=== PATIENT | female | born 1950 | race Caucasian/White ===

== ENCOUNTER 2020-11-18 12:13 | Emergency (ER) | payer OTHER, MEDICARE ==
[2020-11-18 13:52] LABS: Urine RBC LOADED /HPF (NONE SEEN)
[2020-11-18 13:53] LABS: Urine Bacteria 20-50 /HPF (<20)
--- NOTE | 2020-11-18 14:13 | RAD REPORT ---
EXAM DESCRIPTION: RAD - Chest Single View - 11/18/2020 1:59 pm CLINICAL HISTORY: Cough;COPD;Dyspnea Chest pain. COMPARISON: No comparisons FINDINGS: Portable technique limits examination quality. The lungs are grossly clear. The heart is normal in size. No displaced fractures. IMPRESSION: No acute intrathoracic process suspected.
[2020-11-18] MEDS ORDERED: NA CHLORIDE 0.9% 1,000 ML ONE (14:22)
[2020-11-18 14:34] LABS: Absolute Lymphocytes (CBC) 1.8 K/uL (0.7-4.9); Basophils % 1.1 % (0-1.3); Hematocrit 18.9 % (36.0-45.0); Lymphocytes % 27.9 % (15.3-44.8); MPV 8.7 fL (7.6-11.3); RBC Red Blood Cell Count 3.38 M/uL (3.86-4.86)
[2020-11-18 14:55] LABS: ALT/SGPT 14 U/L (12-78); AST/SGOT 13 U/L (15-37); Alkaline Phosphatase 93 U/L (45-117); BUN Blood Urea Nitrogen 15 mg/dL (7-18); Bicarbonate 25 mmol/L (21-32); Bilirubin Direct 0.1 mg/dL (0-0.2); Bilirubin Total 0.3 mg/dL (0.2-1.0); Glucose Level 99 mg/dL (74-106); Lipase 88 U/L (73-393); Magnesium 2.3 mg/dL (1.8-2.4); NT PRO-BNP 326 pg/mL (<125); Potassium 3.9 mmol/L (3.5-5.1); Protein, Total 6.8 g/dL (6.4-8.2); Sodium Level 143 mmol/L (136-145); Troponin (Emerg Dept Use Only) < 0.02 ng/mL (0.0-0.045)
--- NOTE | 2020-11-18 15:09 | RAD REPORT ---
EXAM DESCRIPTION: CT - Angio Aorta For Dissection - 11/18/2020 2:35 pm CLINICAL HISTORY: Chest pain radiating to the back. COPD;Dissection;Abdominal distention COMPARISON: No comparisons TECHNIQUE: CT angiography of the aorta was performed with MIPs. All CT scans are performed using dose optimization technique as appropriate and may include automated exposure control or mA/KV adjustment according to patient size. FINDINGS: A left aortic arch is present with normal branching pattern of the great vessels.No acute aortic finding is seen such as aneurysm, penetrating ulcer or dissection. The celiac axis, SMA, TIMBO and renal arteries are patent. Moderate aortoiliac atherosclerosis. No evidence of pulmonary embolism. Mild diffuse COPD is present. No pulmonary nodule, mass or infiltrate. The liver demonstrates no focal mass or biliary dilatation.Benign hepatic cysts are seen.The spleen, pancreas, adrenal glands and left kidney are within normal limits for arterial phase imaging. The right pelvicaliceal system appears dilated with the right renal pelvis measuring up to 25 mm. The right pelvicaliceal system is filled with soft tissue density material suspicious for uroepithelial neoplasm such as transitional cell carcinoma. No bowel obstruction, free fluid or abscess.Prominent sigmoid diverticulosis without diverticulitis. Appendectomy.No pathologic enlarged lymphadenopathy identified. No fracture or worrisome bone lesion seen. IMPRESSION: Right pelvicaliceal system is dilated and filled with soft tissue material very suspicio us for transitional cell carcinoma. Recommend retrograde pyelography for further assessment. No acute aortic finding is demonstrated.
[2020-11-18] MEDS ORDERED: NA CHLORIDE 0.9% 100 ML ONE (15:25)
[2020-11-18] MEDS ORDERED: CEFTRIAXONE/SWI 1gm 1 GM/10 ML SYR ONE (15:25)
[2020-11-18] MEDS ORDERED: LEVALBUTEROL 1.25 MG/3 ML NEB ONE (15:25)
[2020-11-18] MEDS ORDERED: IPRATROPIUM BROM 0.5MG/2.5ML ONE (15:25)
[2020-11-18] MEDS ORDERED: METHYLPREDNISOLONE 125 MG INJ ONE (15:25)
--- NOTE | 2020-11-18 15:28 | EDPHYS ---
Physician Documentation [facility] Name: Alycia Ames Age: 70 yrs Sex: Female : 1950 Arrival Date: 11/18/2020 Time: 12:16 Bed 5 Private MD: ED Physician Jose Bangura HPI: 11/18 13:45 This 70 yrs old Female presents to ER via Ambulatory with complaints of mary ann Shortness Of Breath, Back Pain, Urinary Problem - Blood. 13:45 The patient has shortness of breath at rest, with light activity. Onset: The mary ann symptoms/episode began/occurred gradually, 3 day(s) ago. Duration: The symptoms are continuous, and are steadily getting worse. The patient's shortness of breath has no apparent modifying factors. Associated signs and symptoms: The patient has no apparent associated signs or symptoms. Severity of symptoms: At their worst the symptoms were mild moderate in the emergency department the symptoms are unchanged. The patient has not experienced similar symptoms in the past. Historical: - Allergies: 12:58 No Known Allergies; ca1 - Home Meds: 12:58 Premarin 1.25 mg Oral tab 1 tab once daily [Active]; Lipitor 20 mg Oral tab 1 tab once ca1 daily [Active]; Zetia 10 mg Oral tab 1 tab once daily [Active]; Plavix 75 mg Oral tab 1 tab once daily [Active]; Xanax 0.5 mg Oral tab [Active]; - PMHx: 12:58 Aneurysm; High Cholesterol; ca1 - PSHx: 12:58 Hysterectomy; Appendectomy; Cholecystectomy; ca1 - Immunization history:: Pneumococcal vaccine is not up to date, Flu vaccine is not up to date. - Social history:: Smoking status: Patient reports the use of cigarette tobacco products, smokes two packs cigarettes per day. ROS: 13:46 Constitutional: Negative for fever, chills, and weight loss, Eyes: Negative for injury, mary ann pain, redness, and discharge, ENT: Negative for injury, pain, and discharge, Neck: Negative for injury, pain, and swelling, Cardiovascular: Negative for chest pain, palpitations, and edema, Back: Negative for injury and pain, : Negative for injury, bleeding, discharge, and swelling, MS/Extremity: Negative for injury and deformity, Skin: Negative for injury, rash, and discoloration, Neuro: Negative for headache, weakness, numbness, tingling, and seizure, Psych: Negative for depression, anxiety, suicide ideation, homicidal ideation, and hallucinations, Allergy/Immunology: Negative for hives, rash, and allergies, Endocrine: Negative for neck swelling, polydipsia, polyuria, polyphagia, and marked weight changes, Hematologic/Lymphatic: Negative for swollen nodes, abnormal bleeding, and unusual bruising. 13:46 Respiratory: Positive for cough, shortness of breath, at rest. 13:46 Abdomen/GI: Positive for abdominal pain, of the right lower quadrant. Exam: 13:46 Constitutional: This is a well developed, well nourished patient who is awake, alert, mary ann and in no acute distress. Head/Face: Normocephalic, atraumatic. Eyes: Pupils equal round and reactive to light, extra-ocular motions intact. Lids and lashes normal. Conjunctiva and sclera are non-icteric and not injected. Cornea within normal limits. Periorbital areas with no swelling, redness, or edema. ENT: Nares patent. No nasal discharge, no septal abnormalities noted. Tympanic membranes are normal and external auditory canals are clear. Oropharynx with no redness, swelling, or masses, exudates, or evidence of obstruction, uvula midline. Mucous membranes moist. Neck: Trachea midline, no thyromegaly or masses palpated, and no cervical lymphadenopathy. Supple, full range of motion without nuchal rigidity, or vertebral point tenderness. No Meningismus. Chest/axilla: Normal chest wall appearance and motion. Nontender with no deformity. No lesions are appreciated. Cardiovascular: Regular rate and rhythm with a normal S1 and S2. No gallops, murmurs, or rubs. Normal PMI, no JVD. No pulse deficits. Back: No spinal tenderness. No costovertebral tenderness. Full range of motion. Female : Normal external genitalia. Skin: Warm, dry with normal turgor. Normal color with no rashes, no lesions, and no evidence of cellulitis. MS/ Extremity: Pulses equal, no cyanosis. Neurovascular intact. Full, normal range of motion. Neuro: Awake and alert, GCS 15, oriented to person, place, time, and situation. Cranial nerves II-XII grossly intact. Motor strength 5/5 in all extremities. Sensory grossly intact. Cerebellar exam normal. Normal gait. Psych: Awake, alert, with orientation to person, place and time. Behavior, mood, and affect are within normal limits. 13:46 Respiratory: the patient does not display signs of respiratory distress, Respirations: no acute changes, Breath sounds: decreased breath sounds, that are moderate, are heard in the right upper lobe, left upper lobe, right middle lobe, left lower lobe, right lower lobe, left posterior upper lobe, right posterior upper lobe, left posterior lower lobe, right posterior middle lobe and right posterior lower lobe. 13:46 Abdomen/GI: Inspection: abdomen appears normal, Bowel sounds: normal, Palpation: mild abdominal tenderness, in the right lower quadrant. 15:28 Abdomen/GI: Rectal exam: is unremarkable, rectal tone Stool: guaiac negative, mary ann hemorrhoid(s), are not appreciated, mass, is not appreciated, swelling, is not appreciated, tenderness, is not appreciated, fecal impaction, is not appreciated, the exam is chaperoned by a family member. Vital Signs: 12:50 BP 144 / 66; Pulse 82; Resp 19 S; Temp 97.3(TE); Pulse Ox 100% on R/A; Weight 80.29 kg ca1 (R); Height 5 ft. 7 in. (170.18 cm) (R); Pain 0/10; 14:00 BP 127 / 61; Pulse 80; Resp 17; Pulse Ox 100% ; bp 15:00 BP 131 / 64; Pulse 86; Resp 17; Pulse Ox 100% ; bp 16:00 BP 132 / 59; Pulse 89; Resp 17; Pulse Ox 99% ; bp 18:00 BP 124 / 65; Pulse 88; Resp 19; Temp 98.5; Pulse Ox 100% ; bp 12:50 Body Mass Index 27.72 (80.29 kg, 170.18 cm) ca1 MDM: 13:27 Patient medically screened. mary ann 13:48 Differential diagnosis: CHF exacerbation, Chronic Obstructive Pulmonary Disease mary ann Myocardial Infarction pulmonary edema, Pulmonary Embolism Sepsis Unstable Angina Peptic Ulcer Disease, urinary tract infection. Antibiotic administration: Not indicated. The patient's Wells Deep Vein Thrombosis Score was calculated as follows: Total Score: 0-2 Pts- Low Risk. The patient's pulmonary embolism risk score was calculated as follows: Total Score: 0-2 points. This patient was found to be at low risk for a pulmonary embolism by using the Well's assessment criteria. Immunization status: Pneumococcal vaccine: Influenza vaccine: Data reviewed: vital signs, nurses notes, old medical records, lab test result(s), EKG, radiologic studies, CT scan, plain films. 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 Test interpretation: by ED physician or midlevel provider: ECG, plain radiologic studies. Counseling: I had a detailed discussion with the patient and/or guardian regarding: the historical points, exam findings, and any diagnostic results supporting the discharge/admit diagnosis, lab results, radiology results, the need for further work-up and treatment in the hospital. 11/18 13:25 Order name: Urine Culture [facility] 11/18 13:25 Order name: Urine Microscopic Only [facility] 11/18 13:43 Order name: Basic Metabolic Panel; Complete Time: 15:15 [facility] 11/18 13:43 Order name: CBC with Diff [facility] 11/18 13:43 Order name: LFT's; Complete Time: 15:15 [facility] 11/18 13:43 Order name: Magnesium; Complete Time: 15:15 [facility] 11/18 13:43 Order name: NT PRO-BNP; Complete Time: 15:15 [facility] 11/18 13:43 Order name: PT-INR; Complete Time: 14:55 [facility] 11/18 13:43 Order name: Troponin (emerg Dept Use Only); Complete Time: 15:15 [facility] 11/18 13:43 Order name: Blood Culture Adult (2) [facility] 11/18 13:43 Order name: Lipase; Complete Time: 15:15 [facility] 11/18 13:43 Order name: Flu [facility] 11/18 13:43 Order name: Lactate; Complete Time: 14:55 [facility] 11/18 13:43 Order name: XRAY Chest (1 view); Complete Time: 14:33 [facility] 11/18 13:43 Order name: CT Aorta for Dissection; Complete Time: 15:15 [facility] 11/18 13:55 Order name: Urine Microscopic Only; Complete Time: 14:33 [facility] 11/18 14:34 Order name: CREATININE WHOLE BLOOD [facility] 11/18 15:17 Order name: Type And Screen [facility] 11/18 15:28 Order name: SARS-COV-2 RT PCR; Complete Time: 15:32 [facility] 11/18 15:37 Order name: CBC Smear Scan [facility] 11/18 17:01 Order name: ABO/RH no charge [facility] 11/18 13:43 Order name: O2 Sat Monitoring; Complete Time: 13:47 [facility] 11/18 13:43 Order name: Urine Dipstick-Ancillary (obtain specimen); Complete Time: 14:34 [facility] Administered Medications: 14:20 Drug: NS 0.9% 1000 ml Route: IV; Rate: 125 ml/hr; Site: right antecubital; bp 14:45 Drug: SOLU-Medrol 125 mg Route: IVP; Site: right antecubital; bp 16:08 Follow up: Response: No adverse reaction bp 14:45 Drug: Xopenex 3.75 mg Route: Inhalation; bp 14:45 Drug: AtroVENT Aerosol 0.5 mg Route: Inhalation; bp 14:45 Drug: Rocephin 1 grams Route: IV; Rate: per protocol; Site: right antecubital; bp 16:08 Follow up: IV Status: Completed infusion; IV Intake: 50ml bp 15:45 Drug: Pepcid 20 mg Route: IVP; Site: right antecubital; bp 16:09 Follow up: Response: No adverse reaction bp 20:23 Drug: Nicotine 21 mg/24 hr 1 patches {Note: applied to the left shoulder.} Route: em Transdermal; Site: affected area; Disposition: 11/18/20 15:27 Transfer ordered to [facility]. Diagnosis are Chronic obstructive pulmonary disease, unspecified, Anemia, unspecified, Hematuria - rightpelvicaliceal dilation mass, transitional cell cancer. - Reason for transfer: Higher level of care. - Accepting physician is to [facility]. - Condition is Fair. - Problem is new. - Symptoms have improved. Signatures: Dispatcher [employer] EDHI Jose Bangura MD MD cha Munoz, Edgar, RN RN Mateo Merchant RN RN Erika Duran RN RN ca1 Corrections: (The following items were deleted from the chart) 15:35 13:45 CORONAVIRUS+MR.LAB.BRZ ordered. [facility] 16:20 15:27 11/18/2020 15:27 Transfer ordered to [facility]. [facility] Diagnosis is Chronic obstructive pulmonary disease, unspecified; Anemia, unspecified; Hematuria - rightpelvicaliceal dilation mass, transitional cell cancer. Reason for transfer: Higher level of care. Accepting physician is to [facility]. Condition is Fair. Problem is new. Symptoms have improved. [facility] 21:23 16:20 11/18/2020 15:27 Transfer ordered to [facility]. em Diagnosis is Chronic obstructive pulmonary disease, unspecified; Anemia, unspecified; Hematuria - rightpelvicaliceal dilation mass, transitional cell cancer. Reason for transfer: Higher level of care. Accepting physician is to [facility]. Condition is Fair. Problem is new. Symptoms have improved. mary ann
--- NOTE | 2020-11-18 15:28 | ER ---
Nurse's Notes [facility] Name: Alycia Ames Age: 70 yrs Sex: Female : 1950 Arrival Date: 11/18/2020 Time: 12:16 Bed 5 Private MD: Diagnosis: Chronic obstructive pulmonary disease, unspecified;Anemia, unspecified;Hematuria-rightpelvicaliceal dilation mass, transitional cell cancer Presentation: 11/18 12:50 Chief complaint: Patient's son or daughter states: Daughter: Blood in Urine on and off ca1 x 2 months. R lower back pain on and off x 2 months. Pain with bloody urine. SOB x 2 - 3 weeks, getting worse. Denies fever. Denies cough. Reports swelling on R ankle, L eye, and some abdominal distention. Coronavirus screen: Client denies travel out of the [place] in the last 14 days. shortness of breath, Client presents with at least one sign or symptom that may indicate coronavirus-19. Standard/surgical mask placed on the client. Provider contacted for isolation considerations. Ebola Screen: Patient negative for fever greater than or equal to 101.5 degrees Fahrenheit, and additional compatible Ebola Virus Disease symptoms Patient denies exposure to infectious person. Patient denies travel to an Ebola-affected area in the 21 days before illness onset. No symptoms or risks identified at this time. Initial Sepsis Screen: Does the patient meet any 2 criteria? No. Patient's initial sepsis screen is negative. Does the patient have a suspected source of infection? No. Patient's initial sepsis screen is negative. Risk Assessment: Do you want to hurt yourself or someone else? Patient reports no desire to harm self or others. Onset of symptoms was November 18, 2020. 12:50 Method Of Arrival: Ambulatory ca1 12:50 Acuity: SANDRITA 3 ca1 Triage Assessment: 13:00 General: Appears in no apparent distress. uncomfortable, Behavior is cooperative, bp appropriate for age, anxious. Pain: Complains of pain in back. EENT: No deficits noted. Neuro: No deficits noted. Cardiovascular: No deficits noted. Respiratory: Reports shortness of breath Onset: The symptoms/episode began/occurred at an unknown time. the patient has mild shortness of breath. GI: Reports diarrhea. : Reports BLOOD IN URINE. Derm: No deficits noted. Musculoskeletal: No deficits noted. Historical: - Allergies: 12:58 No Known Allergies; ca1 - Home Meds: 12:58 Premarin 1.25 mg Oral tab 1 tab once daily [Active]; Lipitor 20 mg Oral tab 1 tab once ca1 daily [Active]; Zetia 10 mg Oral tab 1 tab once daily [Active]; Plavix 75 mg Oral tab 1 tab once daily [Active]; Xanax 0.5 mg Oral tab [Active]; - PMHx: 12:58 Aneurysm; High Cholesterol; ca1 - PSHx: 12:58 Hysterectomy; Appendectomy; Cholecystectomy; ca1 - Immunization history:: Pneumococcal vaccine is not up to date, Flu vaccine is not up to date. - Social history:: Smoking status: Patient reports the use of cigarette tobacco products, smokes two packs cigarettes per day. Screenin:50 Abuse screen: Denies threats or abuse. Has been threatened or abused. Nutritional bp screening: No deficits noted. Tuberculosis screening: No symptoms or risk factors identified. 12:50 The patient has not been NPO before screening. The patient is alert, able to follow bp commands. The patient does not exhibit slurred or garbled speech The patient is not exhibiting difficulty speaking. The patient does not exhibit difficulty understanding words. The patient is able to swallow own secretions with no drooling or need for suction. Patient tolerated one teaspoon of water. No drooling, immediate coughing, gurgling, or clearing of the throat was noted. The patient tolerated 90mL of water. No drooling, immediate coughing, gurgling, or clearing of the throat was noted. The patient passed the bedside swallow screening. Oral medications may be given as ordered. Contact Physician for further diet orders. Fall Risk None identified. Assessment: 13:30 General: SEE TRIAGE NOTE. bp 14:30 Cardiovascular: No deficits noted. Respiratory: Airway is patent Respiratory effort is bp even, unlabored. 15:30 Reassessment: No changes from previously documented assessment. Patient and/or family bp updated on plan of care and expected duration. Pain level reassessed. Patient is alert, oriented x 3, equal unlabored respirations, skin warm/dry/pink. TRANSFER INITIATED. 16:30 Reassessment: TRANSFER IN PROCESS. TRANSFUSION CONSENT SIGNED AND WITNESSED. bp Cardiovascular: Rhythm is sinus rhythm. Respiratory: Breath sounds are diminished bilaterally. 18:20 Reassessment: No changes from previously documented assessment. Patient and/or family bp updated on plan of care and expected duration. Pain level reassessed. Patient is alert, oriented x 3, equal unlabored respirations, skin warm/dry/pink. 1ST UNIT PRBC INITIATED. 19:55 Reassessment: report given to [facility]. Reassessment: report given to SAMINA Tipton at [facility], pending EMS transportation. 20:40 Reassessment: Patient appears in no apparent distress at this time. Patient and/or iw family updated on plan of care and expected duration. Pain level reassessed. Patient is alert, oriented x 3, equal unlabored respirations, skin warm/dry/pink. RBC's completed. Vital Signs: 12:50 BP 144 / 66; Pulse 82; Resp 19 S; Temp 97.3(TE); Pulse Ox 100% on R/A; Weight 80.29 kg ca1 (R); Height 5 ft. 7 in. (170.18 cm) (R); Pain 0/10; 14:00 BP 127 / 61; Pulse 80; Resp 17; Pulse Ox 100% ; bp 15:00 BP 131 / 64; Pulse 86; Resp 17; Pulse Ox 100% ; bp 16:00 BP 132 / 59; Pulse 89; Resp 17; Pulse Ox 99% ; bp 18:00 BP 124 / 65; Pulse 88; Resp 19; Temp 98.5; Pulse Ox 100% ; bp 12:50 Body Mass Index 27.72 (80.29 kg, 170.18 cm) ca1 ED Course: 12:16 Patient arrived in ED. bg2 12:55 Triage completed. ca1 12:58 Arm band placed on right wrist. ca1 13:27 Jose Bangura MD is Attending Physician. mary ann 13:29 Patient has correct armband on for positive identification. Bed in low position. Call mh5 light in reach. Side rails up X 1. Adult w/ patient. Warm blanket given. surveillance monitor on. Pulse ox on. NIBP on. 13:29 Urine collected: clean catch specimen, blood tinged, juvenal blood. 5 13:30 Urine Microscopic Only Sent. 5 13:30 Urine Culture Sent. mh5 13:34 Mateo Gonzalez, SAMINA is Primary Nurse. bp 13:59 XRAY Chest (1 view) In Process Unspecified. EDMS 14:20 Inserted saline lock: 20 gauge in right antecubital area, using aseptic technique. bp Blood collected. 14:35 CT Aorta for Dissection In Process Unspecified. EDMS 15:[address] Bangura with Freida Andre from the [facility] eb center. 15:36 Freida from the [facility]/ they called to decline the patient in eb transfer due to being at [facility]. 15:59 initiated a transfer with Chente from the [facility]. per Chente they will eb have to decline the patient in transfer due to being at ICU Saturation. 16:34 reinitated a transfer with Negrita Marks from the [facility] at the eb request of a Dr. Galvan/ who says a Dr. Tom Francis (hospitalist) will accept him in transfer. 17:05 administrative approval given by Negrita Marks pending a bed/ patient has been accepted eb to [facility] . Dr Tom Francis has accepted the patient in transfer/ She will call back once they have assigned the patient a room. 17:30 patient will be going to [facility] 2016- report to be eb called to [phone]. 21:04 No provider procedures requiring assistance completed. Patient transferred, IV remains iw in place. Administered Medications: 14:20 Drug: NS 0.9% 1000 ml Route: IV; Rate: 125 ml/hr; Site: right antecubital; bp 14:45 Drug: SOLU-Medrol 125 mg Route: IVP; Site: right antecubital; bp 16:08 Follow up: Response: No adverse reaction bp 14:45 Drug: Xopenex 3.75 mg Route: Inhalation; bp 14:45 Drug: AtroVENT Aerosol 0.5 mg Route: Inhalation; bp 14:45 Drug: Rocephin 1 grams Route: IV; Rate: per protocol; Site: right antecubital; bp 16:08 Follow up: IV Status: Completed infusion; IV Intake: 50ml bp 15:45 Drug: Pepcid 20 mg Route: IVP; Site: right antecubital; bp 16:09 Follow up: Response: No adverse reaction bp 20:23 Drug: Nicotine 21 mg/24 hr 1 patches {Note: applied to the left shoulder.} Route: em Transdermal; Site: affected area; Intake: 16:08 IV: 50ml; Total: 50ml. bp Outcome: 15:27 ER care complete, transfer ordered by . mary ann 21:20 Transferred by ground EMS to [facility], Transfer form completed. X-rays iw sent w/ patient. 21:20 Condition: stable 21:20 Instructed on the need for transfer, Demonstrated understanding of instructions. 21:23 Patient left the ED. em Signatures: Dispatcher [employer] Jose Ferrer MD MD cha Munoz, Edgar, RN RN Chio Drake RN RN iw Glass, Brittany bg2 Martinez, Maria Mateo Villagran RN Marilyn Costa Cheryl RN RN ca1
[2020-11-18 16:27] LABS: Anisocytosis 3+; Blood Morphology Comment NOTED (NOT SEEN); Platelet Estimate ADEQ; Poikilocytosis 3+; White Blood Cell Scan OK (OK)
[2020-11-18] MEDS ORDERED: FAMOTIDINE 20 MG/2 ML VIAL IV ONE (17:13)
[2020-11-18] MEDS ORDERED: NA CHLORIDE 0.9% 250 ML ONE (18:32)
[2020-11-18] MEDS ORDERED: NICOTINE 21 MG/PAT TD ONE (20:36)
[2020-11-18 22:23] VITALS: BP 124/65
[2020-11-18 22:32] VITALS: TEMP 97.3; O2SAT 99
== END 2020-11-18 21:23 | disposition short-term general hospital (02) ==
LOC: ER 12:13
PROC: 30233N1 Transfusion of Nonautologous Red Blood Cells into Peripheral Vein, Percutaneous Approach (ICD-10-PCS; principal; 2020-11-18)
DX: D64.9 Anemia, unspecified (principal); J44.9 Chronic obstructive pulmonary disease, unspecified; C66.2 Malignant neoplasm of left ureter; E78.00 Pure hypercholesterolemia, unspecified; F17.210 Nicotine dependence, cigarettes, uncomplicated; Z20.822 Contact with and (suspected) exposure to COVID-19; Z79.01 Long term (current) use of anticoagulants
CPT/HCPCS: 96365; 87040 ×2; 87088; 85025; 87086; 80048; 36415; 86900; 83735; 86850; 85610; 82565; 86901; 80076; 83605; 81015; 84484; 83690; 83880; 71275; 74175; 71045; 96375; 99285; 36430; U0003; Q9967; J0696; P9016; J7050; J7030; J2930